=== PATIENT | female | born 1970 ===

== ENCOUNTER 2024-05-25 06:49 | Day surgery (SDC) | payer BC, SELFPAY ==
[2024-05-25] VITALS (7 sets, daily range): BP systolic 124–158; BP diastolic 67–92; BMI 38.8
[2024-05-25] MEDS: TYLENOL 1000 MG PO (13:27)
[2024-05-25] MEDS: CELEBREX 200 MG PO (13:27)
[2024-05-25] MEDS: DILAUDID 0.25 MG IV (16:34)
== END 2024-05-25 18:04 | disposition home or self-care (01) ==
LOC: SDS 06:49
PROVIDERS: ATTENDING PHYSICIAN Orthopaedic Surgery
DX: S43.012A Anterior subluxation of left humerus, initial encounter (principal); S43.212A Anterior subluxation of left sternoclavicular joint, initial encounter; X58.XXXA Exposure to other specified factors, initial encounter
CPT/HCPCS: 29827; 29828; 93005; C1713